=== PATIENT | female | born 1960 | race Caucasian/White ===

== ENCOUNTER → 2016-11-16 | Outpatient (CLI) | payer OTHER ==
[~2016-11-16] MED LIST: ALBU1NEB10 INH; ALBUAER19 INH; ARTISOL8 OP; ASPI-435 PO; ATRINSX INH; BACI1OIN22 TOP; FLUT230A INH; FRS/80 PO; INDO-24 PO; LEVO125T5 PO; LOSA50TA6 PO; METO5TAB5 PO; NRN/300 PO; NYSS/ PO; NYSTCRE32 TOP; OXGN; OXGN NAE; POTA1TAB97 PO; PRLSR20 PO; TIOTCAP INH
--- NOTE | 2016-11-17 05:35 | PAP/PSG TECHNICIAN REPORT ---
[facility] Tractor Drill Operator Polysomnogram Report Study name: None Report date: 11/17/2016 Study date: 11/16/2016 Referring Physician: Valeri Ga M.D. Name: ZAKIA JACOB Interpreting Physician: Bri Ga M.D. Date of : 1960 Tractor Drill Operator: Diane Terry [facility]. Sex: Female Age: 56 StudyType: PSG Weight: Height: 56 years, Height BMI: Medications: Albuterol 108mcg/act, Oxygen, Atrovent 0.02%nebulizer solution, Advair 230-21mcg/act, Spiriva 18mcg/capsule, Neurontin 300mg, Zaroxolyn 5mg, Cozaar 50mg, Klor-Con M20 20MEQ Patient History 56 yr. old female here for an updated BiPAP study. Patient is currently on 09/06 with 3 lpm 02. Patient brought her own nasal mask that she uses at home. Her and stated that her mouth is open all night. Test was started on full face mask. Parameters Monitored NPSG: E1-M2, E2-M1, Fp1-M2, Fp2-M1, F3-M2, F4-M2, F4-M1, C3-M2, C4-M2, C4-M1, O1-M2, O2-M2, O2-M1, T3-M2, T4-M1, P3-M2, P4-M1, CHIN1, CHIN2, HR, EKG, Legs, PFLOW, SNOR, FLOW, CFLOW, Tidal Volume, THOR, ABDO, SpO2, PLTH, CPRESS, ETCO2 Wave, ETCO2, pH Sleep Architecture Sleep Stages Time at Lights Off 9:33:45 PM STAGES Time (min.) TST (%) Time at Lights On 5:07:15 AM Wake 119.0 -- Total Recording Time (TRT) 453.50 min. N1 30.0 9 Total Sleep Period (TSP) 435.0 min. N2 205.5 62 Total Sleep Time (TST) 334.0min. N3 35.5 11 Awake Time 119.5 min. REM 63.0 19 Wake after Sleep Onset 108.0 min. Sleep Efficiency (SE) 74 % Sleep Onset Latency (BRIANDA) 11.5 min. Number of Stage 1 Shifts None Awakenings 24 Stage Changes 116 Number of REM periods 2 REM 63.0 19 REM Latency 66.0 min. NREM 271.0 81 Body Position Analysis Supine Right Left Side Prone Vertical Total Sleep Time (min.) 0.0 0.0 0.0 0.00 0.0 453.0 Total Sleep Time (%) 0% 0% 0% 0 0% 100% Total Sleep Time REM (min.) 0.0 0.0 0.0 None 0.0 63.0 Total Sleep Time NREM (min.) 0.0 0.0 0.0 None 0.0 271.0 Intermittent Wake (min.) 0.0 0.0 0.0 None 0.0 119.0 Total Sleep Period (%) 0% None None None None None Arousals Myoclonus (PLM) * Events Count Index Events Count Index Spontaneous 17 3 Events Awake (PLMW) 70 35.3 Respiratory 18 3.2 Events Asleep w/ Arousal (PLMA) 35 6.3 PLM 35 6 Events Asleep w/o Arousal (PLMS) 95 17.1 Snoring 0 0 Total Asleep 130 23.4 Total 70 13 Total 200 26 Respiratory Analysis * CA OA MA CH H RERA Total Count 0 0 0 0 63 6 63 Index 0.0 0.0 0.0 0 11.3 1 12.4 Mean Duration 0.0 0.0 0.0 0.00 26.6 20.9 26.1 Longest Duration 0.0 0.0 0.0 0.00 0.0 25.4 63.3 Respiratory Event Summary Total Supine ~Supine Right Left Prone REM NREM Apneas Count 0 N/A 0 N/A N/A N/A 0 0 Index 0.0 N/A 0 N/A N/A N/A 0 0 Hypopneas (4% Desat) Count 63 N/A 63 N/A N/A N/A 6 57 Index 11.3 N/A 11 N/A N/A N/A 5.7 12.6 Apneas & All Hypopneas Count 63 N/A 63 N/A N/A N/A 6 57 Index 11.3 N/A 11 N/A N/A N/A 5.7 12.6 Respiratory Events (Elevator Erector Helper+All Hyp+RERA) Count 63 N/A 69 N/A N/A N/A 6 57 Index 12.4 N/A 12 N/A N/A N/A 5.7 13.9 Respiratory Related Arousal Count 18 N/A 18 N/A N/A N/A 0 18 Index 3.2 N/A 3 N/A N/A N/A 0 4 Snoring Analysis Supine Right Left Prone REM NREM Total Snore duration 0.0 min Snores count N/A N/A N/A N/A 0 1 1 Snore mean duration 0.6 Sec Snores index N/A N/A N/A N/A 0.0 0.2 0.2 TST with snoring (%) 0.0% Desaturation Event Summary: Minimum %SpO2 Event Count Mean/Min/Max Duration(sec.) Desaturation Index % Time In Bed > 90 9 39.7 / 23.3 / 54.8 86.6 1.4 86 - 90 62 32.0 / 15.3 / 60.0 23.9 36.0 81 - 85 32 34.4 / 13.3 / 60.0 7.3 60.5 76 - 80 2 27.8 / 13.3 / 42.3 13.8 2.0 71 - 75 0 N/A 0.0 0.0 66 - 70 0 N/A 0.0 0.0 61 - 65 0 N/A 0.0 0.0 56 - 60 0 N/A 0.0 0.0 51 - 55 0 N/A 0.0 0.0 < 50 0 N/A 0.0 0.0 Total REM NREM Awake <50% 0.0 min. 0.0 min. 0.0 min. 0.0 min. 51 - 60% 0.0 min. 0.0 min. 0.0 min. 0.0 min. 61 - 70% 0.0 min. 0.0 min. 0.0 min. 0.0 min. 71 - 80% 8.7 min. 2.7 min. 5.8 min. 0.2 min. 81 - 90% 416.6 min. 60.3 min. 261.7 min. 94.5 min. 91 - 100% 6.2 min. 0.0 min. 3.4 min. 2.8 min. Average 85 84 85 87 Minimum SpO2 77 79 77 80 Desaturation Event Index 10.9 6.7 16.2 1.0 # Desat. Events below 89% 82 7 73 2 Time(%) with Saturation below 89% 92.5 14.6 59.3 18.6 Time(min.) with Saturation below 89% 399.0 63.0 255.8 80.1 Time (mins) REM (mins) NREM (mins) % of TST SpO2 Below 90% 80 7 N73 98.0 SpO2 Below 88% 43 0 0 91 Heart Rate Analysis Min (bpm) Max (bpm) Average (bpm) Awake 49 75 63 NREM 48 70 56 REM 49 67 56 Overall 48 70 56 Supplemental O2 Values Minimum O2 level: None Value Start Time End Time Tractor Drill Operator Comments Mrs. Jacob slept in upright position, starting the night in a hospital bed and moving to a recliner at 12:27am. No cardiac arrhythmia noted. PLMs noted. No bruxism noted. PAP initiated at an IPAP of +10 CMH2O and an EPAP of +5 CMH2O with 2 lpm 02 at sleep onset. Pressure was changed per order to IPAP of +16 CMH2O and an EPAP of +10 CMH2O. She was up-titrated to a level of: IPAP +23 CMH2O, EPAP 13 CMH20 BiFlex 3 with 4 lpm 02. *Increased oxygen to 3 lpm @ 4:27 am she was on a pressure of 23/13 for 128.6 min. AHI was 1.5 time under 89% 116.2 min. * Increased oxygen to 4 lpm @ 4:51 am she was on a pressure of 23/13 for 152.6 min. AHI was 1.3 time under 89% 139.2 min. Multiple masks were tried throughout the night. As the pressure increased, so would the mask leak due to patients jaw dropping and mouth being wide open. The following full face masks were used: medium Quattro air, medium Simplus, medium AirFit F20, small Mirage Quattro, and medium mirage Quattro. The Medium Mirage Quattro had the lowest leak on a high pressure. Mrs. Jacob awoke to use the restroom once during the night. Mrs. Jacob stated, "(Example) I did not sleep as well as I do when I am in my own bed". The final report will be interpreted and signed by a sleep physician. The completed physician report will then be placed in the patient medical record. Therapy Event: Therapy (cm H20) 05/29 1409/06 Total Time at Pressure (min.) 13.8 2.0 44.9 27.6 23.5 14.2 23.2 87.0 48.7 168.1 TST at Pressure (min.) 1.0 0.7 30.4 27.6 23.0 14.2 22.7 33.8 30.9 149.6 # Periods 1 1 1 1 1 1 1 1 1 1 Sleep Onset (min.) 11.5 1.2 0.0 0.0 0.0 0.0 0.0 0.0 4.3 0.0 REM Onset (min.) N/A N/A N/A 16.8 0.0 N/A N/A N/A N/A 8.1 Sleep Efficiency % 7 38 67 100 97 100 97 38 63 89 Wakefulness (%) 92.7 62.0 32.3 0.0 2.1 0.0 2.2 61.2 36.5 11.0 Wakefulness (min.) 12.8 1.2 14.5 0.0 0.5 0.0 0.5 53.2 17.8 18.5 NREM 1 (%) 7.3 38.0 15.0 0.0 10.6 3.5 10.8 4.6 13.3 3.3 NREM 1 (min.) 1.0 0.7 6.8 0.0 2.5 0.5 2.5 4.0 6.5 5.5 NREM 2 (%) 0.0 0.0 52.7 51.9 20.4 96.5 84.9 31.4 50.1 46.2 NREM 2 (min.) 0.0 0.0 23.7 14.3 4.8 13.7 19.7 27.3 24.4 77.6 NREM 3 (%) 0.0 0.0 0.0 9.1 0.0 0.0 2.2 2.9 0.0 17.8 NREM 3 (min.) 0.0 0.0 0.0 2.5 0.0 0.0 0.5 2.5 0.0 30.0 REM (%) 0.0 0.0 0.0 39.0 66.9 0.0 0.0 0.0 0.0 21.7 REM (min.) 0.0 0.0 0.0 10.8 15.7 0.0 0.0 0.0 0.0 36.5 # Arousals 0 0 15 4 6 8 8 7 9 13 Arousal Index 0.0 0.0 29.6 8.7 15.6 33.9 21.1 12.4 17.5 5.2 # Snore 0 0 0 0 0 0 1 0 0 0 Snore Index 0.0 0.0 0.0 0.0 0.0 0.0 2.6 0.0 0.0 0.0 AHI 0.0 0.0 21.7 15.2 20.8 38.1 26.4 12.4 15.5 1.2 AHI Supine N/A N/A N/A N/A N/A N/A N/A N/A N/A N/A AHI Non-Supine 0.0 0.0 21.7 15.2 20.8 38.1 26.4 12.4 15.5 1.2 NREM AHI 0.0 0.0 21.7 10.7 49.3 38.1 26.4 12.4 15.5 1.6 REM AHI N/A N/A N/A 22.3 7.6 N/A N/A N/A N/A 0.0 RDI 0.0 0.0 33.5 15.2 20.8 38.1 26.4 12.4 15.5 1.2 # Obstructive 0 0 0 0 0 0 0 0 0 0 # Central Ap 0 0 0 0 0 0 0 0 0 0 # Mixed 0 0 0 0 0 0 0 0 0 0 # Hypopneas 0 0 11 7 8 9 10 7 8 3 RERAS 0 0 6 0 0 0 0 0 0 0 Total Respiratory Events 0 0 17 7 8 9 10 7 8 3 Time Below SpO2 89.00% (min.) 1.0 0.7 28.9 27.5 20.6 11.1 17.1 33.6 30.9 147.4 Mean NREM SpO2 (%) 86 87 85 84 87 86 87 83 84 84 Mean REM SpO2 (%) N/A N/A N/A 82 84 N/A N/A N/A N/A 84 Mean Sleep SpO2 (%) 86 87 85 83 85 86 87 83 84 84 Min NREM SpO2 (%) 86 86 80 80 82 81 82 78 77 78 Min REM SpO2 (%) N/A N/A N/A 79 80 N/A N/A N/A N/A 82 Position Supine (min.) 0.0 0.0 0.0 0.0 0.0 0.0 0.0 0.0 0.0 0.0 Position Non-supine (min.) 1.0 0.7 30.4 27.6 23.0 14.2 22.7 33.8 30.9 149.6 LM Index Sleep 0.0 160.4 69.0 17.4 26.0 76.2 39.6 10.7 11.6 12.0 LM Index NREM 0.0 160.4 69.0 28.5 57.6 76.2 39.6 10.7 11.6 14.9 LM Index REM N/A N/A N/A 0.0 11.4 N/A N/A N/A N/A 3.3 Mean Heart Rate (bpm) 64 64 63 59 59 57 58 59 55 52 Min Heart Rate (bpm) 63 63 57 56 53 52 53 54 52 48
--- NOTE | 2016-11-22 08:06 | POLYSOMNOGRAPH REPORT ---
REFERRING PERSON: Dr. Bri Ga. UTILITY WORKER [employer]: Diane Terry. Ms. Sow is a 56-year-old female sent for a BiPAP titration study. She is currently using a BIPAP at 16/10 and 3 liters of oxygen at bedtime. She is using a nasal mask at home; however, her states her mouth is open all night. She is willing to try a full facemask. Her Sumner Sleepiness Scale Score on the evening of this study is not recorded. BMI is also not recorded. Following the technical and digital specifications of the [place] [employer] (AASM) a standard diagnostic polysomnogram was performed monitoring EEG, EOG, EMG (chin and leg deviations), oxygen saturation, body position, digital video, respiratory effort and airflow. The sleep Stage and event scoring was based on the AASM Manual for the Scoring of Sleep and Associated Events 2007 edition. Apneas are defined as a drop in the peak thermal sensor excursion by >90% of baseline for at least 10 seconds. Hypopneas were scored using the 4% oxygen desaturation rule (4A-[employer]) and a decrease in the nasal pressure excursions by >30% of baseline for at least 10 seconds. Respiratory effort-related arousal (RERA's) is defined as a sequence of breaths lasting at least 10 seconds characterized by increasing respiratory effort or flattening of the nasal pressure waveform leading to an arousal from sleep when the sequence of breaths does not meet criteria for an apnea or hypopnea. Apnea Hypopnea index (AHI) is defined as the number of apneas and hypopneas occurring in an hour of sleep. Respiratory disturbance index (RDI) is defined as the number of apneas, hypopneas, and RERA's occurring in an hour of sleep. Ms. Sow total sleep period time was 435 minutes. Total sleep time was 334 minutes. Sleep efficiency was 74%. Latency to sleep onset was 11.5 minutes with wake after sleep onset of 108 minutes. Total non-REM sleep time was 271 minutes. She spent 9% of that time in N1 sleep, 62% in N2 sleep and 11% in N3 sleep. REM latency was 66 minutes. Total REM sleep time was 63 minutes or 19% of total sleep time. There were 70 cortical arousals from sleep. Thirty-five of these arousals were due to periodic limb movements of sleep and 18 were due to respiratory events, and 17 were spontaneous. There were 130 periodic limb movements noted on this test. Limb movement index was 23.4. Limb movement with arousal index was 6.3. There were no central obstructive or mixed apneas on this test. There were 63 hypopnea and 6 RERA. Apnea-hypopnea index was 11.3 consistent with mild sleep apnea. The supine AHI was 11, REM AHI was 5.7. Mean saturation was low at 85% and saturations were less than 89 for 399 minutes of recorded time. There was no cardiac ectopy noted on this test. Heart rates ranged from a low of 48 beats per minute to a high of 70 beats per minute during sleep. Per the technologist notes, this patient started the night in bed in the upright position but moved to recliner at 12:27 a.m. This test was ordered to start on her home pressure of 16/10. However, for patient comfort and ability to fall asleep it was started on 10/5 with 2 liters and then quickly increased to 16/10. Over the course of the night, inspiratory and expiratory pressure as well as oxygen needed to be increased in order to prevent apneic and hypopneic events as well as hypoxemia. She was observed on a pressure of 23/17 for 149.6 minutes of sleep, 36.5 of those minutes was spent in REM sleep. However, none of it was supine REM sleep. AHI and RDI on this pressure were both 1.2. At 4:27 a.m. on a pressure of 23/13 for 152.6 minutes with an AHI of 1.3 at that time her saturations remained less than 89% for 116.2 of those minutes and oxygen was increased to 3 liters. Her oxygen was increased to 4 liters at 4:51 a.m. for continued nocturnal desaturation on 3 liters. Multiple masks were tried by the technologist during the night and the mask with the least amount of leak on a high pressure was a medium Mirage Quattro full facemask. IMPRESSION AND PLAN: Successful BiPAP titration study in this patient with obstructive sleep apnea and nocturnal hypoxemia. Using a medium Mirage Quattro full facemask, this patient did well an in IPAP of 23 with an EPAP of 13 and 4 liters of supplemental oxygen for nocturnal hypoxemia despite adequate treatment of sleep disordered breathing.
== END | disposition home or self-care (01) ==
LOC: C.NEUR 21:00
PROVIDERS: ATTEND Family Medicine
DX: G47.31 Primary central sleep apnea (principal); G47.33 Obstructive sleep apnea (adult) (pediatric); E66.2 Morbid (severe) obesity with alveolar hypoventilation; G47.34 Idiopathic sleep related nonobstructive alveolar hypoventilation

== ENCOUNTER → 2018-03-24 | Outpatient (CLI) | payer OTHER ==
[~2018-03-24] MED LIST changes: +ALBINS/ INH; -ALBU1NEB10 INH; -ALBUAER19 INH; +ARTI1SPR3 PO; +ARTISOL12 OPB; -ARTISOL8 OP; -BACI1OIN22 TOP; +BCTOPO TOP; +CYAN100061 PO; -FLUT230A INH; -FRS/80 PO; +FURO80TA63 PO; -LEVO125T5 PO; +MOME100A INH; +MRLP17 PO; -NYSS/ PO; +PRED10TA PO; +PRED20TA PO; +SYN137 PO; -TIOTCAP INH; +UMEC1INH INH; +VNTHFA/IN INH; +[UNRECOGNIZED DRUG - CODE] PO
[2018-03-24 13:08] LABS: ALBUMIN 3.5 gm/dl (3.4-5.0); CALCIUM 10.8 mg/dl (8.5-10.1)
== END | disposition home or self-care (01) ==
LOC: C.LABPBG 07:27
PROVIDERS: ATTEND Physician Assistant
DX: E27.9 Disorder of adrenal gland, unspecified (principal); E03.9 Hypothyroidism, unspecified; E21.3 Hyperparathyroidism, unspecified